=== PATIENT | female | born 1985 | race Caucasian/White ===

== ENCOUNTER 2017-05-28 06:59 | Inpatient (IN) | payer BC, MEDICAID ==
[~2017-05-28] VITALS: Ht 152.4 cm; Wt 80.0 kg
[2017-05-28] VITALS (30 sets, daily range): BP systolic 97–141; BP diastolic 55–90; PULSE 65–104; TEMP 97.5–97.8
[2017-05-28] MEDS ORDERED: ZOLOFT 50MG50 MG PO (07:28)
[2017-05-28] MEDS ORDERED: PRENATAL1 TA7 PO (07:28)
[2017-05-28] MEDS ORDERED: ZANTAC 150MG T150 MG PO (07:29)
[2017-05-28] MEDS ORDERED: DHEA 10 MG TAB1 EACH PO (07:29)
[2017-05-28] MEDS ORDERED: CALCIUM CARBON650 M2 (07:29)
[2017-05-28 10:47] LABS: BASO % 0.2 % (0.0-2.0); EOS % 0.3 % (0-4.0); GRAN % 81.1 % (42.2-75.2); HEMOGLOBIN 12.1 g/dl (12.5-16.0); LYMPH # 1.8 (1.2-3.4); MEAN CELL VOLUME 91 fl (80.0-100.0); MEAN CORPUSCULAR HEMOGLOBIN 30 pg (27.0-31.0); MEAN CORPUSCULAR HGB CONC 33 g/dl (33.0-37.0); MEAN PLATELET VOLUME 9.7 fl (7.4-10.4); MONO # 0.8 (0.1-0.6); MONO % 5.5 % (1.7-9.3); PLATELET COUNT 262 K/mm3 (130-400); RED BLOOD COUNT 4.03 M/mm3 (4.10-5.30); REDCELL DISTRIBUTION WIDTH-CV 12.9 % (11.5-14.5); WHITE BLOOD COUNT 14.8 K/mm3 (4.8-10.8)
[2017-05-28 10:49] LABS: HEMATOCRIT 36.6 % (37.0-47.0)
[2017-05-29 00:10] VITALS: BP 110/54; PULSE 79; TEMP 98.2
[2017-05-29 04:05] VITALS: BP 92/55; PULSE 73; TEMP 98.2
[2017-05-29 06:30] VITALS: BP 99/65; PULSE 78; TEMP 97.9
[2017-05-29] MEDS ORDERED: IBU800 M1 PO (07:52)
[2017-05-29 09:09] LABS: BASO % 0.2 % (0.0-2.0); EOS # 0.1 (0.0-0.7); EOS % 0.7 % (0-4.0); GRAN # 11.3 (1.4-6.5); GRAN % 80.4 % (42.2-75.2); LYMPH # 1.6 (1.2-3.4); LYMPH % 11.3 % (20.0-51.0); MEAN CELL VOLUME 92 fl (80.0-100.0); MEAN CORPUSCULAR HGB CONC 33 g/dl (33.0-37.0); MEAN PLATELET VOLUME 9.8 fl (7.4-10.4); MONO # 0.9 (0.1-0.6); MONO % 6.5 % (1.7-9.3); PLATELET COUNT 209 K/mm3 (130-400); RED BLOOD COUNT 3.24 M/mm3 (4.10-5.30); WHITE BLOOD COUNT 14.1 K/mm3 (4.8-10.8)
[2017-05-29 09:21] LABS: HEMATOCRIT 29.9 % (37.0-47.0); HEMOGLOBIN 9.9 g/dl (12.5-16.0); MEAN CORPUSCULAR HEMOGLOBIN 31 pg (27.0-31.0)
== END 2017-05-29 15:00 | disposition home or self-care (01) | DRG 774 ==
LOC: OB 06:59 → LDR 06:59 → OB 15:50 → LDRO 06-04 12:15 → EDSTATUS 06-04 12:43 → LDRO 06-04 17:14
PROVIDERS: Student in an Organized Health Care Education/Training Program
PROC: 10E0XZZ Delivery of Products of Conception, External Approach (ICD-10-PCS; principal; 2017-05-28)
PROC: 0UQMXZZ Repair Vulva, External Approach (ICD-10-PCS; 2017-05-28)
PROC: 3E033VJ Introduction of Other Hormone into Peripheral Vein, Percutaneous Approach (ICD-10-PCS; 2017-05-28)
PROC: 0HQ9XZZ Repair Perineum Skin, External Approach (ICD-10-PCS; 2017-05-28)
DX: O36.0130 Maternal care for anti-D [Rh] antibodies, third trimester, not applicable or unspecified (principal); O72.1 Other immediate postpartum hemorrhage; O70.0 First degree perineal laceration during delivery; O71.82 Other specified trauma to perineum and vulva; O66.0 Obstructed labor due to shoulder dystocia; Z3A.39 39 weeks gestation of pregnancy; Z37.0 Single live birth
CPT/HCPCS: J2590; J2791; J7120

== ENCOUNTER 2019-05-19 16:16 | Outpatient (CLI) | payer BC, MEDICAID ==
[~2019-05-19] VITALS: Ht 154.9 cm; Wt 80.0 kg
[~2019-05-19 16:16] MED LIST: CALCIUM CARBON650 M2; DHEA 10 MG TAB1 EACH PO; IBU800 M1 PO; PRENATAL1 TA7 PO; ZANTAC 150MG T150 MG PO; ZOLOFT 50MG50 MG PO
--- NOTE | 2019-05-19 16:20 | NUR ---
1620-G3L2 37.[address] Dennisures ambulatory to LR 6 with complaint of irregular contractions on and off since last night at 1700. Reports "they are getting stronger since 1500 today when I lost more of my mucus plug." Denies LOF or VB. Reports good FM. Was seen in office yesterday and was dilated /-2. Today patient reports she was seen in [facility] and cervix was "4-5cm". Placed on EFM, reactive FHR. Contractions tracing via toco every 4-5 min and irregular, palpate moderate. 1630-SVE 3-4/70-3, Mucus discharge with brown to reddish coloring. 1645-Dr. Hoover on unit. Reviews FHR monitor. Orders to monitor x1 hour and recheck. 1730-SVE unchanged. Patient reports contractions "feel Stronger" 1736-Updaetd Dr. Hoover, orders to recheck in one hour and update. Patient up to ambulate in [facility].
[2019-05-19 16:30] VITALS: BP 123/80; PULSE 75; TEMP 98
[2019-05-19] MEDS ORDERED: BONJESTA ER 201 EACH PO (16:44)
[2019-05-19] MEDS ORDERED: TUMS500 MG (16:45)
[2019-05-19] MEDS ORDERED: TYLENOL 500MG500 MG PO (16:45)
[2019-05-19 17:00] VITALS: BP 123/80; PULSE 75; TEMP 98
[2019-05-19 17:33] VITALS: BP 123/77; PULSE 74
--- NOTE | 2019-05-19 18:22 | NUR ---
1821-Patient back on EFM, SVE slightly changed tight /-3. Orders to give one liter LR now, see physician notification. 1844-IV to left forearm, LR infusing per MD order, see EMAR. Reported off to CeciliaRN
[2019-05-19 18:30] VITALS: BP 117/71; PULSE 69
[2019-05-19 18:50] VITALS: BP 134/71; PULSE 76
--- NOTE | 2019-05-19 20:15 | NUR ---
Repeat SVE with no changes noted. Reviewed SVE and probable discharge with pt and spouse, quesstions ivited and answered. off monitor.
--- NOTE | 2019-05-19 20:51 | NUR ---
discharge instructions reviewed. Denies questions. Ambulatory off unit.
== END 2019-05-19 20:51 | disposition home or self-care (01) ==
LOC: LDRO 16:16 → LDR 16:45 → LDRO 20:51 → LDR 20:51
DX: O62.9 Abnormality of forces of labor, unspecified (principal); Z3A.37 37 weeks gestation of pregnancy
CPT/HCPCS: OP; J7120

== ENCOUNTER 2019-05-24 03:19 | Inpatient (IN) | payer BC, MEDICAID ==
[~2019-05-24] VITALS: Ht 154.9 cm; Wt 80.0 kg
[2019-05-24] VITALS (14 sets, daily range): BP systolic 104–142; BP diastolic 52–91; PULSE 59–80; TEMP 97.9–98.7
[~2019-05-24 03:19] MED LIST changes: +BONJESTA ER 201 EACH PO; +TUMS500 MG; +TYLENOL 500MG500 MG PO
--- NOTE | 2019-05-24 03:30 | NUR ---
G3L2. 38-3. To LDR 3 with spouse. Clean gown on. EFM and TOCO explained and applied. Pt states her water broke around 0215 tonight, clear fluid noted. Pt states contractions have increased in intensity since getting to hospital. Reports good movement. SVE 5/90/-1, with forebag noted. Amniotest positive. Plan of care explained. 0342: updated on pts status. Admit orders recieved. 0351: IV started and labs obtained via IV site LR bolus infusing. Pt requesting epidural at this time. Aneesh BENNETT notified. 0410: Pt sitting on EOB for epidural placement. Pulse ox applied. Difficulty tracing FHR due to maternal position. 0414: Aneesh BENNETT at bedside for placement and procedure explained. 0424: Test dose administered by Aneesh BENNETT. See anesthesia records 0428: Pt repostioned to WL position. Pt states she is feeling more pressure with contractions. 0430: SVE C/-1, forebag noted. 0434: notified and requested at hospital. 0441: at bedside for delivery. Pt repositioned into footplates and prepped for delivery. Forebag ruptured with large amount of clear fluid noted. Pt educated on pushing with contractions. Pt begins pushing with 0448: Spontaneous delivery of viable male infant by . Infant to mothers chest where dried and stimulated by nursery RN. Cord clamped X2 and cut by FOB. Care of infant assummed by Sophia MAJOR. 0450: Spontaneous delivery for intact placenta by . Pitocin started 333mus/hr per protocol. First degree laceration repaired by . Pericare provider and pads changed. Pt repositioned and ice pack applied. Plan of care and safety precautions explained to pt and . Call light within reach.
[2019-05-24 04:03] LABS: BASO % 0.2 % (0.0-2.0); EOS # 0.1 (0.0-0.7); GRAN # 7.8 (1.4-6.5); GRAN % 71.8 % (42.2-75.2); HEMOGLOBIN 12.3 g/dl (12.5-16.0); LYMPH # 2.1 (1.2-3.4); LYMPH % 19.4 % (20.0-51.0); MEAN CELL VOLUME 89 fl (80.0-100.0); MEAN CORPUSCULAR HEMOGLOBIN 30 pg (27.0-31.0); MEAN CORPUSCULAR HGB CONC 34 g/dl (33.0-37.0); MEAN PLATELET VOLUME 9.8 fl (7.4-10.4); MONO # 0.8 (0.1-0.6); PLATELET COUNT 231 K/mm3 (130-400); RED BLOOD COUNT 4.05 M/mm3 (4.10-5.30); REDCELL DISTRIBUTION WIDTH-CV 13.2 % (11.5-14.5)
[2019-05-24 04:07] LABS: HEMATOCRIT 36.1 % (37.0-47.0)
[2019-05-25 07:35] VITALS: BP 114/73; PULSE 71; TEMP 97.9
[2019-05-25] MEDS ORDERED: IBU800 M1 PO (12:08)
== END 2019-05-25 12:35 | disposition home or self-care (01) | DRG 807 ==
LOC: LDRO 03:19 → LDR 03:46 → OB 07:30
PROVIDERS: ADMIT Obstetrics & Gynecology
PROC: 10E0XZZ Delivery of Products of Conception, External Approach (ICD-10-PCS; principal; 2019-05-24)
PROC: 0HQ9XZZ Repair Perineum Skin, External Approach (ICD-10-PCS; 2019-05-24)
DX: O42.92 Full-term premature rupture of membranes, unspecified as to length of time between rupture and onset of labor (principal); Z37.0 Single live birth; O70.0 First degree perineal laceration during delivery; O99.344 Other mental disorders complicating childbirth; F32.9 Major depressive disorder, single episode, unspecified; F41.9 Anxiety disorder, unspecified; Z3A.38 38 weeks gestation of pregnancy
CPT/HCPCS: J2590; J2791; J2795; J7120

== ENCOUNTER → 2021-08-07 | Outpatient (CLI) | payer MEDICAID | LOC: MC.RAD 15:34 | DX: Z12.31 Encounter for screening mammogram for malignant neoplasm of breast (principal); N64.89 Other specified disorders of breast ==

== ENCOUNTER → 2021-08-17 | Outpatient (CLI) | payer MEDICAID | LOC: MC.RAD 08:00 | DX: N64.89 Other specified disorders of breast (principal) ==

== ENCOUNTER → 2022-03-29 | Outpatient (CLI) | payer MEDICAID | LOC: MC.RAD 09:58 | DX: N64.89 Other specified disorders of breast (principal) ==

== ENCOUNTER → 2022-04-22 | Outpatient (CLI) | payer MEDICAID | LOC: MC.RAD 10:58 | DX: R92.8 Other abnormal and inconclusive findings on diagnostic imaging of breast (principal) ==